=== PATIENT | female | born 1990 | race Caucasian/White ===

== ENCOUNTER 2021-03-24 18:36 | Emergency (ER) | payer OTHER, SELFPAY ==
[2021-03-24 18:45] VITALS: BP 110/59; PULSE 89; RESP 18; TEMP 36.9; O2SAT 95; BMI 25.7
[2021-03-24 19:00] VITALS: PULSE 89; RESP 18; TEMP 36.9; O2SAT 95; BMI 25.6
--- NOTE | 2021-03-24 19:07 | XR_ITS ---
PROCEDURE INFORMATION: Exam: XR Chest Exam date and time: 03/24/2021 7:07 PM Age: 31 years old Clinical indication: Cough and shortness of breath; Smoker's cough; Patient HX: Cough and congestion, smoker. Stated not . Shielded with lead apron. ; Additional info: SOA TECHNIQUE: Imaging protocol: XR of the chest. Views: 2 views. Total images: 2 COMPARISON: No relevant prior studies available. FINDINGS: Lungs: Pulmonary vasculature grossly normal. No gross pulmonary infiltrates or edema pattern. Mild bronchial wall thickening bilaterally suggesting bronchitis. Pleural spaces: No pleural effusion. No pneumothorax. Heart/Mediastinum: Heart size normal. No tracheal/mediastinal shift. Bones/joints: No acute osseous abnormalities are identified. Other findings: Mild hyperexpansion. IMPRESSION: 1. No gross pulmonary infiltrates. 2. Bilateral bronchial wall thickening and mild pulmonary hyperexpansion suggesting bronchitis/bronchiolitis.
--- NOTE | 2021-03-24 19:15 | HMH.EDUTC ---
[facility] [place] Clinical Impression: Viral syndrome, Exposure to COVID-19 virus Asthma exacerbation Qualifiers: Asthma severity: unspecified severity Asthma persistence: unspecified Qualified Code(s): J45.901 - Unspecified asthma with (acute) exacerbation Disposition: Home, Self-Care Condition on Discharge: Good Instructions: Preventing the Spread of Coronavirus Discharge Instructions, DI for COVID-19 (Suspected or Confirmed ), DI for Asthma -- Adult, DI for Viral Syndrome Additional Instructions: Drink plenty of fluids. Take tylenol or ibuprofen for pain or fever. Take the medications as directed. Follow up with your regular doctor. GO TO THE ER FOR ANY WORSENING SYMPTOMS Quarantine until you know the results of your covid-19 test. If it is positive, the health department should call you and give you further instructions about your length of Quarantine and other things. Notify your school or workplace of your results and follow their instructions regarding return to work/school. Don't start the oral steroids until tomorrow, since you had the shot here today. Prescriptions: Albuterol Sulfate [Albuterol Sulfate Hfa] 2 puffs IH Q6HP PRN 30 Days #1 each PRN Reason: Shortness Of Breath Transmission Status: Pending to [facility] [place] Brompheniramine/Pseudoephed/Dm [Bromfed Dm Cough Syrup] 5 ml PO Q6HP PRN #240 ml PRN Reason: Cough Transmission Status: Pending to [facility] [place] dexAMETHasone [Decadron] 6 mg PO DAILY 6 Days #6 tab Transmission Status: Pending to [facility] [place] Azithromycin [Z-Gunner 250mg Tab*] 250 mg PO UD DOSE PK #6 tab Transmission Status: Pending to [facility] [place] Referrals: Michelle Sierra MD [Primary Care Provider] - Time of Disposition: 20:20 Medical Decision Making - Medical Records Medical records reviewed: No: I reviewed the patient's medical records. - Ace Inquiry Pt receiving controlled substance: No Vital Signs: 03/24/21 18:45 03/24/21 19:00 Temperature 98.4 F 98.4 F Temperature Source Oral Oral Pulse Rate [Left Radial] 89 89 Respiratory Rate 18 18 Blood Pressure [Left Arm] 110/59 L Blood Pressure Mean [Left Arm] 76 Blood Pressure Source [Left Arm] Automatic Cuff Blood Pressure Position [Left Arm] Sitting 02 Sat by Pulse Oximetry 95 95 Oxygen Delivery Method Room Air - Lab Data Lab results reviewed: Yes: I reviewed the patient's lab results. Orders (Tests/Meds): ED MEDICATIONS Discontinued Medications Generic Name Dose Route Start Last Admin Trade Name Ruben PRN Reason Stop Dose Admin Albuterol Sulfate 2.5 mg 03/24/21 19:43 03/24/21 19:54 Albuterol 0.083% 2.5 Mg/3 Ml Neb IH 03/24/21 19:44 2.5 mg ONCE ONE Administration ORDERS Category Date Time Status Covid-19 Nasal PCR ([facility]) Routine Lab 03/24/21 19:20 Received - Radiology Data #1 Image(s): Chest Image Reviewed: Yes I reviewed the patient's radiology image, Yes I have reviewed radiologist's interpretation Preliminary Findings: No Infiltrates Seen PROCEDURE INFORMATION: Exam: XR Chest Exam date and time: 03/24/2021 7:07 PM Age: 31 years old Clinical indication: Cough and shortness of breath; Smoker's cough; Patient HX: Cough and congestion, smoker. Stated not . Shielded with lead apron. ; Additional info: SOA TECHNIQUE: Imaging protocol: XR of the chest. Views: 2 views. Total images: 2 COMPARISON: No relevant prior studies available. FINDINGS: Lungs: Pulmonary vasculature grossly normal. No gross pulmonary infiltrates or edema pattern. Mild bronchial wall thickening bilaterally suggesting bronchitis. Pleural spaces: No pleural effusion. No pneumothorax. Heart/Mediastinum: Heart size normal. No tracheal/mediastinal shift. Bones/joints: No acute osseous abnormalities are identified. Other findings: Mild hyperexpansion. IMPRESSION: 1. No gross pulmonary infiltrates. 2. Bilateral br
[2021-03-24 20:22] VITALS: BP 110/59; PULSE 89; RESP 18; TEMP 36.9
== END 2021-03-24 20:31 | disposition home or self-care (01) ==
LOC: ER 18:51 → UTC 18:51
PROVIDERS: Emergency Provider Nurse Practitioner Family; PCP Nurse Practitioner
DX: B34.9 Viral infection, unspecified (principal); J45.901 Unspecified asthma with (acute) exacerbation; Z20.822 Contact with and (suspected) exposure to COVID-19; F17.210 Nicotine dependence, cigarettes, uncomplicated
CPT/HCPCS: 71046; 96372; 99202; C9803; G0463; U0003; U0005